=== PATIENT | male | born 1965 | race Two or more races ===

== ENCOUNTER 2018-10-08 11:03 | Emergency (ER) | payer SELFPAY ==
[~2018-10-08] VITALS: Ht 165.1 cm; Wt 63.5 kg
[~2018-10-08 11:03] MED LIST: NKM
[2018-10-08 11:09] VITALS: BP 139/83
--- NOTE | 2018-10-08 11:11 | NUR ---
ED Nurse Note: Pt BIBA from work due to LLQ abdominal pain x 1 hour, started after he went to the bathroom this morning. No complaint of n/v/d. Pain sharp, 10/10 rolo. AOx4, VSS at this time. Pt stated he "has the feeling that he needs to go to bathroom but cant go". Will cont to monitor.
--- NOTE | 2018-10-08 11:14 | Emergency Room Report ---
History of Present Illness General Chief Complaint: Abdominal Pain Source: Significant Other Present Illness HPI 53-year-old male presents with sudden onset of left lower quadrant pain that started 30 minutes prior to arrival, no aggravating or relieving factors, he endorses a sharp spasming pain in the LLQ, no radiation, no fevers no chills, he states he feels like he needs to urinate, presents for evaluation Allergies: Coded Allergies: No Known Allergies (Unverified , 10/08/18) Patient History Past Medical History: none Past Surgical History: none Pertinent Family History: none Reviewed Nursing Documentation: PMH: Agreed; PSxH: Agreed Nursing Documentation-PMH Past Medical History: No Stated History Review of Systems Constitutional: Denies: chills, fever Eye: Denies: blurred vision, double vision ENT: Denies: throat pain, nasal discharge Respiratory: Denies: cough, shortness of breath Cardiovascular: Denies: chest pain, palpitations Gastrointestinal: Reports: abdominal pain, nausea; Denies: diarrhea, vomiting Genitourinary: Reports: urgency Musculoskeletal: Denies: back pain, muscle pain Skin: Denies: rash, lesions Neurological: Denies: headache, focal weakness Hematologic/Lymphatic: Denies: easy bleeding, easy bruising All Other Systems: negative except mentioned in HPI Physical Exam Vital Signs Date Time Temp Pulse Resp B/P (MAP) Pulse Ox O2 Delivery O2 Flow Rate FiO2 10/08/18 10:59 66 16 124/68 (86) 99 Room Air 10/08/18 11:09 98.7 Sp02 EP Interpretation: reviewed, normal General Appearance: alert, severe distress Head: normocephalic, atraumatic Eyes: bilateral eye PERRL, bilateral eye EOMI ENT: uvula midline, moist mucus membranes Neck: supple, thyroid normal, supple/symm/no masses Respiratory: lungs clear, no respiratory distress, no retraction, no accessory muscle use Cardiovascular #1: normal peripheral pulses, regular rate, rhythm, no edema, no gallop, no murmur Gastrointestinal: non tender, soft, no guarding, no rebound Musculoskeletal: normal inspection Neurologic: alert, oriented x3 Psychiatric: mood/affect normal Skin: no rash, warm/dry Medical Decision Making Diagnostic Impression: Primary Impression: Ureterolithiasis ER Course 53-year-old male presents with onset left lower quadrant pain, patient states that he is never had this before, CT abdomen and pelvis shows a stone in the bladder. The differential was AAA, urinary tract infection, ureterolithiasis. Patient does not have right lower quadrant pain, abdominal precautions were given to the patient Patient with an elevated white count of 17, most likely a stress reaction, will provide patient with Keflex prophylactically, low suspicion for an actual UTI, patient pain on reevaluation at 1:18pm completely resolved, will disposition patient home with return precautions Laboratory Tests Test 10/08/18 11:15 10/08/18 12:05 White Blood Count 17.6 K/UL (4.8-10.8) H Red Blood Count 4.27 M/UL (4.70-6.10) L Hemoglobin 13.5 G/DL (14.2-18.0) L Hematocrit 40.4 % (42.0-52.0) L Mean Corpuscular Volume 95 FL (80-99) Mean Corpuscular Hemoglobin 31.7 PG (27.0-31.0) H Mean Corpuscular Hemoglobin Concent 33.5 G/DL (32.0-36.0) Red Cell Distribution Width 11.6 % (11.6-14.8) Platelet Count 317 K/UL (150-450) Mean Platelet Volume 5.8 FL (6.5-10.1) L Neutrophils (%) (Auto) 75.5 % (45.0-75.0) H Lymphocytes (%) (Auto) 17.2 % (20.0-45.0) L Monocytes (%) (Auto) 6.2 % (1.0-10.0) Eosinophils (%) (Auto) 0.3 % (0.0-3.0) Basophils (%) (Auto) 0.7 % (0.0-2.0) Sodium Level 141 MMOL/L (136-145) Potassium Level 4.1 MMOL/L (3.5-5.1) Chloride Level 104 MMOL/L (98-107) Carbon Dioxide Level 26 MMOL/L (21-32) Anion Gap 12 mmol/L (5-15) Blood Urea Nitrogen 20 mg/dL (7-18) H Creatinine 1.2 MG/DL (0.55-1.30) Estimate Glomerular Filtration Rate > 60 mL/min (>60) Glucose Level 137 MG/DL (74-106) H Calcium Level 9.8 MG/DL (8.5-10.1) Total Bilirubin 0.5 MG/DL (0.2-1.0) Aspartate Amino Transferase (AST) 44 U/L (15-37) H Alanine Aminotransferase (ALT) 51 U/L (12-78) Alkaline Phosphatase 49 U/L (46-116) Total Protein 7.9 G/DL (6.4-8.2) Albumin 4.1 G/DL (3.4-5.0) Globulin 3.8 g/dL Albumin/Globulin Ratio 1.1 (1.0-2.7) Lipase 128 U/L (73-393) Urine Color Pale yellow Urine Appearance Clear Urine pH 5 (4.5-8.0) Urine Specific Howe 1.015 (1.005-1.035) Urine Protein Negative (NEGATIVE) Urine Glucose (UA) Negative (NEGATIVE) Urine Ketones Negative (NEGATIVE) Urine Blood 5+ (NEGATIVE) H Urine Nitrite Negative (NEGATIVE) Urine Bilirubin Negative (NEGATIVE) Urine Urobilinogen Normal MG/DL (0.0-1.0) Urine Leukocyte Esterase Negative (NEGATIVE) Urine RBC Tntc /HPF (0 - 0) H Urine WBC 0-2 /HPF (0 - 0) Urine Squamous Epithelial Cells Occasional /LPF Urine Bacteria Occasional /HPF (NONE) EKG Diagnostic Results EKG Time: 11:17 EP Interpretation: Sinus bradycardia, no acute ST elevations Rate: normal, bradycardiac Rhythm: other - sinus bradycardia CT/MRI/US Diagnostic Results CT/MRI/US Diagnostic Results : Impression Procedure: CT Abdomen Pelvis WO Contrast Indication: Left lower quadrant abdominal pain times one hour Technique: Spiral acquisitions obtained through the abdomen and pelvis. No oral contrast utilized, per emergency room physician request No IV contrast utilized , per referring physician request.. Multiplanar reconstructions were generated. Total dose length product 613.53 mGycm. CTDIvol(s) 11.42 mGy. Dose reduction achieved using automated exposure control Comparison: None Findings: The left kidney is enlarged and there is perinephric fat stranding. There is mild left hydronephrosis and hydroureter. No ureteral calculi are demonstrated, but a 3 mm calculus is seen dependently within the bladder lumen. No intrarenal calculi are demonstrated. No right intrarenal or ureteral calculi are demonstrated. Lack of IV contrast limits assessment of the renal parenchyma. Multiple cysts are demonstrated bilaterally. Lack of enteric contrast limits assessment of the GI tract. The appendix is slightly prominent in caliber, measuring up to 7 mm in diameter, and there is very slight increased attenuation of the periappendiceal fat. There is equivocal mild wall thickening of the splenic flexure of the colon and proximal ascending colon. This is probably an artifact of under distention. No evidence of diverticulosis or acute diverticulitis. No small bowel distention. There is questionably a surgical small bowel staple line in the left lower quadrant. No free or loculated intraperitoneal gas or fluid. Distal esophagus, stomach, duodenum are unremarkable. Lack of IV contrast limits assessment of the other solid organs. The liver, gallbladder, bile ducts, pancreas, spleen, left adrenal are unremarkable. The right adrenal demonstrates a 23 mm mass which demonstrates negative attenuation measurements (-15 Hounsfield units). No retroperitoneal or mesenteric mass or adenopathy. No pelvic mass or adenopathy. There are posterior dependent pulmonary parenchymal atelectatic changes. The bones are unremarkable. Impression: Mild left hydronephrosis, hydroureter, and large left kidney and perinephric fat stranding. Although no ureteral calculus demonstrated, there is a 3 mm calculus within the bladder lumen which is probably a recently passed calculus Limited assessment of the GI tract due to lack of enteric contrast administration Slightly prominent appendix and very slight increased attenuation of the periappendiceal fat. Of doubtful significance given stated clinical history of left-sided pain, but the possibility of early acute appendicitis should also be considered. Correlate with clinical findings Equivocal mild wall thickening is likely flexure of the colon and proximal descending colon. Probably an artifact of under distention, but the possibility of colitis should be considered Questionable evidence of prior small bowel surgery 23 mm right adrenal mass. Fat attenuation measurement indicates that this is probably a lipid rich benign adenoma Incidental findings as noted, including bilateral renal cysts, posterior dependent pulmonary atelectatic changes Findings discussed by phone with Dr. Narayanan in the emergency room at the time of interpretation The CT scanner at [facility] is accredited by the [employer] and the scans are performed using protocols designed to limit radiation exposure to as low as reasonably achievable to attain images of sufficient resolution adequate for diagnostic evaluation. Dictated By: Gino Lemus MD Electronically Signed By: Gino Lmeus MD Signed Date/Time 10/08/18 1233 CC: Keith Narayanan M.D. Last Vital Signs Date Time Temp Pulse Resp B/P (MAP) Pulse Ox O2 Delivery O2 Flow Rate FiO2 10/08/18 11:09 78 16 Room Air 10/08/18 11:09 98.7 139/83 99 Disposition: HOME, SELF-CARE Condition: Improved Scripts Cephalexin* (CEPHALEXIN*) 500 Mg Tablet 500 MG ORAL EVERY 6 HOURS for 10 Days, #40 CAP Prov: Keith Narayanan M.D. 10/08/18 Additional Instructions: Patient is provided with the discharge instructions notified to follow-up with primary doctor in the next 2-3 days otherwise return to the ER with any worsening symptoms Please note that this report is being documented using [employer] technology. This can lead to erroneous entry secondary to incorrect interpretation by the dictating instrument. Keith Narayanan M.D. Oct 08, 2018 11:14
[2018-10-08] MEDS ORDERED: Morphine Sulfate 4mg/ml Inj (IV USE ONLY) IVP ONE (11:15)
[2018-10-08 11:33] LABS: BASOPHILS % (AUTO) 0.7 % (0.0-2.0); EOSINOPHILS % (AUTO) 0.3 % (0.0-3.0); HEMATOCRIT 40.4 % (42.0-52.0); HEMOGLOBIN 13.5 G/DL (14.2-18.0); LYMPHOCYTES % (AUTO) 17.2 % (20.0-45.0); MEAN CORPUSCULAR VOLUME 95 FL (80-99); MONOCYTES % (AUTO) 6.2 % (1.0-10.0); NEUTROPHILS % (AUTO) 75.5 % (45.0-75.0); PLATELET COUNT 317 K/UL (150-450); RED BLOOD COUNT 4.27 M/UL (4.70-6.10); RED CELL DISTRIBUTION WIDTH 11.6 % (11.6-14.8); WHITE BLOOD COUNT 17.6 K/UL (4.8-10.8)
[2018-10-08 11:42] LABS: ANION GAP 12 mmol/L (5-15); BLOOD UREA NITROGEN 20 mg/dL (7-18); CALCIUM 9.8 MG/DL (8.5-10.1); CARBON DIOXIDE 26 MMOL/L (21-32); CHLORIDE 104 MMOL/L (98-107); CREATININE 1.2 MG/DL (0.55-1.30); POTASSIUM 4.1 MMOL/L (3.5-5.1); SODIUM 141 MMOL/L (136-145)
[2018-10-08 11:47] LABS: ALANINE AMINOTRANSFERASE 51 U/L (12-78); ALBUMIN 4.1 G/DL (3.4-5.0); ALBUMIN/GLOBULIN RATIO 1.1 (1.0-2.7); ALKALINE PHOSPHATASE 49 U/L (46-116); ASPARTATE AMINO TRANSFERASE 44 U/L (15-37); BILIRUBIN,TOTAL 0.5 MG/DL (0.2-1.0)
--- NOTE | 2018-10-08 12:38 | Diagnostic Imaging Report ---
Indication: Left lower quadrant abdominal pain times one hour Technique: Spiral acquisitions obtained through the abdomen and pelvis. No oral contrast utilized, per emergency room physician request No IV contrast utilized, per referring physician request.. Multiplanar reconstructions were generated. Total dose length product 613.53 mGycm. CTDIvol(s) 11.42 mGy. Dose reduction achieved using automated exposure control Comparison: None Findings: The left kidney is enlarged and there is perinephric fat stranding. There is mild left hydronephrosis and hydroureter. No ureteral calculi are demonstrated, but a 3 mm calculus is seen dependently within the bladder lumen. No intrarenal calculi are demonstrated. No right intrarenal or ureteral calculi are demonstrated. Lack of IV contrast limits assessment of the renal parenchyma. Multiple cysts are demonstrated bilaterally. Lack of enteric contrast limits assessment of the GI tract. The appendix is slightly prominent in caliber, measuring up to 7 mm in diameter, and there is very slight increased attenuation of the periappendiceal fat. There is equivocal mild wall thickening of the splenic flexure of the colon and proximal ascending colon. This is probably an artifact of under distention. No evidence of diverticulosis or acute diverticulitis. No small bowel distention. There is questionably a surgical small bowel staple line in the left lower quadrant. No free or loculated intraperitoneal gas or fluid. Distal esophagus, stomach, duodenum are unremarkable. Lack of IV contrast limits assessment of the other solid organs. The liver, gallbladder, bile ducts, pancreas, spleen, left adrenal are unremarkable. The right adrenal demonstrates a 23 mm mass which demonstrates negative attenuation measurements (-15 Hounsfield units). No retroperitoneal or mesenteric mass or adenopathy. No pelvic mass or adenopathy. There are posterior dependent pulmonary parenchymal atelectatic changes. The bones are unremarkable. Impression: Mild left hydronephrosis, hydroureter, and large left kidney and perinephric fat stranding. Although no ureteral calculus demonstrated, there is a 3 mm calculus within the bladder lumen which is probably a recently passed calculus Limited assessment of the GI tract due to lack of enteric contrast administration Slightly prominent appendix and very slight increased attenuation of the periappendiceal fat. Of doubtful significance given stated clinical history of left-sided pain, but the possibility of early acute appendicitis should also be considered. Correlate with clinical findings Equivocal mild wall thickening is likely flexure of the colon and proximal descending colon. Probably an artifact of under distention, but the possibility of colitis should be considered Questionable evidence of prior small bowel surgery 23 mm right adrenal mass. Fat attenuation measurement indicates that this is probably a lipid rich benign adenoma Incidental findings as noted, including bilateral renal cysts, posterior dependent pulmonary atelectatic changes Findings discussed by phone with Dr. Narayanan in the emergency room at the time of interpretation The CT scanner at [facility] is accredited by the [employer] and the scans are performed using protocols designed to limit radiation exposure to as low as reasonably achievable to attain images of sufficient resolution adequate for diagnostic evaluation.
[2018-10-08 12:42] LABS: APPEARANCE,URINE CLEAR; BILIRUBIN, URINE NEGATIVE (NEGATIVE); COLOR,URINE PALE YELLOW; GLUCOSE, URINE (UA) NEGATIVE (NEGATIVE); KETONES,URINE NEGATIVE (NEGATIVE); LEUKOCYTE ESTERASE ,URINE NEGATIVE (NEGATIVE); NITRITE,URINE NEGATIVE (NEGATIVE); PH,URINE 5 (4.5-8.0); PROTEIN,URINE NEGATIVE (NEGATIVE); UROBILINOGEN,URINE NORMAL MG/DL (0.0-1.0)
[2018-10-08 13:02] VITALS: BP 125/73
[2018-10-08] MEDS ORDERED: CEPHALEXIN500 M1 ORAL (13:22)
[2018-10-08 13:40] VITALS: BP 125/73
--- NOTE | 2018-10-08 13:40 | NUR ---
ER DISCHARGE NOTE: Patient is cleared to be discharged per ERMD, pt is aox4, on room air, with stable vital signs. pt was given dc and prescription instructions, pt was able to verbalize understanding, pt id band and iv site removed without complications. pt is able to ambulate with steady gait. pt took all belongings.
--- NOTE | 2018-10-10 16:05 | Cardiology Report ---
APPROVED REPORT EKG Measurement Heart [id number] Sinus bradycardia Minimal voltage criteria for LVH, may be normal variant Borderline ECG
== END 2018-10-08 13:40 | disposition home or self-care (01) ==
LOC: EDBD 11:03 → EMR 11:20
DX: N20.1 Calculus of ureter (principal); N28.1 Cyst of kidney, acquired; E27.9 Disorder of adrenal gland, unspecified
CPT/HCPCS: 36415; 74176; 80053; 81003; 83690; 85025; 93005; 96361; 96374; 96375; 99284; J2270; J2405